=== PATIENT | male | born 1990 | race Caucasian/White ===

== ENCOUNTER 2017-12-29 09:06 | Emergency (ER) | payer BC ==
[2017-12-29 10:25] LABS: #Basophils 0.1 thou/uL (0.0-0.2); #Eosinphils 0.1 thou/uL (0.0-0.7); #Lymphocytes 1.9 thou/uL (1.20-3.40); #Monocytes 0.5 thou/uL (0.11-0.59); #Neutrophils 4.7 thou/uL (1.40-6.50); %Eosinophils 1.3 % (0.0-10.0); %Monocytes 6.9 % (0.0-10.0); %Neutrophils 64.8 % (42.0-75.0); Hemoglobin 15.4 g/dL (14.0-18.0); Mean Corpuscular HGB CONC 33.3 g/dL (32.0-36.0); Mean Corpuscular Hemoglobin 31.6 pg (27.0-31.0); Mean Corpuscular Volume 94.9 fl (80.0-94.0); Mean Platelet Volume 8.3 fL (7.4-10.4); Platelet Count 219 thou/uL (130-400); RBC Distribution Width 11.7 % (11.5-14.5); Red Blood Cell (RBC) Count 4.86 mill/uL (4.70-6.10); White Blood Cell (WBC) Count 7.2 thou/uL (4.8-10.8)
--- NOTE | 2017-12-29 10:44 | CT ---
CT HEAD WITHOUT CONTRAST: Technique: Multiple axial tomograms were obtained through the head without IV enhancement. History: Syncope. FINDINGS: Ventricles have normal size and position. No evidence of intracranial mass or hemorrhage. No evidence of infarct or edema. Sinuses and mastoids are clear. IMPRESSION: No acute abnormality identified. POS: [facility]
[2017-12-29 10:45] LABS: ALT (SGPT) 35 U/L (8-55); AST (SGOT) 36 U/L (5-34); Albumin 4.6 g/dL (3.5-5.0); Alkaline Phosphatase 82 U/L (40-150); Anion Gap 10 mmol/L (10-20); BUN (Urea Nitrogen) 8 mg/dL (8.9-20.6); Bilirubin, Total 1.1 mg/dL (0.2-1.2); Calc. Creatinine Clearance 0 mL/min (70-130); Calcium 9.9 mg/dL (7.8-10.44); Carbon Dioxide 28 mmol/L (22-29); Chloride 103 mmol/L (98-107); Estimated GFR-MDRD Greater than 90; Glucose 116 mg/dL (70-105); Potassium 3.6 mmol/L (3.5-5.1); Protein, Total 7.6 g/dL (6.0-8.3); Sodium 137 mmol/L (136-145)
[2017-12-29 10:53] LABS: CKMB 0.4 ng/mL (0-6.6); Troponin I Less than 0.010 ng/mL (< 0.028)
[2017-12-29 12:31] LABS: Amphetamine Not Detected (NotDetected); Barbiturates Screen Not Detected (NotDetected); Benzodiazepine Screen Not Detected (NotDetected); Cocaine Metabolite Screen Not Detected (NotDetected); Medtox Control Line Valid? VALID (VALID); Medtox Reader # READER 4; Methadone Not Detected (NotDetected); Methamphetamine Not Detected (NotDetected); Opiate Screen Not Detected (NotDetected); Oxycodone Screen Not Detected (NotDetected); Phencyclidine (PCP) Not Detected (NotDetected); THC/Cannabinoid Screen Not Detected (NotDetected); Tricyclic Screen Not Detected (NotDetected)
[2017-12-29] MEDS ORDERED: Ondansetron HCl/PF 4 MG/2 ML Vial ONE (12:41)
--- NOTE | 2018-01-01 15:02 | EKG ---
Test Reason : Blood Pressure : / mmHG Vent. Rate : 070 BPM Atrial Rate : 070 BPM P-R Int : 142 ms QRS Dur : 088 ms QT Int : 404 ms P-R-T Axes : 033 041 030 degrees QTc Int : 436 ms Normal sinus rhythm Normal ECG Confirmed by URSULA DASILVA ([id number]), photography editor CHARLES MARTINEZ ([id number] on 01/01/2018 3:00:36 PM Referred By: BROWN Confirmed By:URSULA DASILVA
== END 2017-12-29 13:45 | disposition home or self-care (01) ==
LOC: ERS 09:06
DX: R11.2 Nausea with vomiting, unspecified (principal); R55 Syncope and collapse; E03.9 Hypothyroidism, unspecified; F32.9 Major depressive disorder, single episode, unspecified; F17.210 Nicotine dependence, cigarettes, uncomplicated
CPT/HCPCS: 36415; 70450; 80053; 80306; 82553; 83605; 84484; 85025; 93005; 96361; 96374; J2405

== ENCOUNTER 2020-06-28 08:57 | Emergency (ER) | payer BC, SELFPAY ==
[2020-06-28] MEDS ORDERED: Ketorolac Tromethamine 30 MG/ML VIAL ONE ×2 (09:31→09:32)
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
== END 2020-06-28 10:44 | disposition home or self-care (01) ==
LOC: ERS 08:57
DX: S60.222A Contusion of left hand, initial encounter (principal); S60.221A Contusion of right hand, initial encounter; F17.210 Nicotine dependence, cigarettes, uncomplicated; F41.0 Panic disorder [episodic paroxysmal anxiety]; E03.9 Hypothyroidism, unspecified; Z79.899 Other long term (current) drug therapy; X58.XXXA Exposure to other specified factors, initial encounter
CPT/HCPCS: 96372; J1885

== ENCOUNTER 2021-03-02 07:32 | Emergency (ER) | payer SELFPAY ==
[2021-03-02] MEDS ORDERED: Lidocaine Viscous Sol 2% 15 ml UD Cup ONE (08:03)
[2021-03-02 16:52] LABS: SARS-CoV-2 PCR by NAA Not Detected (NotDetected)
== END 2021-03-02 07:55 | disposition home or self-care (01) ==
LOC: ERS 07:32
DX: R51.9 Headache, unspecified (principal); Z20.822 Contact with and (suspected) exposure to COVID-19
CPT/HCPCS: 99283; U0003; U0005

== ENCOUNTER 2022-06-13 14:42 | Emergency (ER) | payer SELFPAY | END 2022-06-13 16:44 | disposition home or self-care (01) | LOC: ERS 14:42 | DX: R07.89 Other chest pain (principal); F17.210 Nicotine dependence, cigarettes, uncomplicated | CPT/HCPCS: 71045; 93005 ==